=== PATIENT | female | born 1960 | race African-American/Black ===

== ENCOUNTER 2024-02-07 11:05 | Inpatient (IN) | payer OTHER ==
[~2024-02-07] VITALS: Ht 175.3 cm; Wt 60.0 kg
[2024-02-07] MEDS ORDERED: CHOL500043 PO (11:54)
[2024-02-07] MEDS ORDERED: CASP50VI IV (11:54)
[2024-02-07] MEDS ORDERED: NYST15PO4 TP (11:54)
[2024-02-07] MEDS ORDERED: ACID1CAP3 PO (11:54)
[2024-02-07] MEDS ORDERED: CYCL-448 PO (11:54)
[2024-02-07] MEDS ORDERED: FLUC150T61 PO (11:54)
[2024-02-07] MEDS ORDERED: ASCO500 PO (11:54)
[2024-02-07] MEDS ORDERED: METO25 PO (11:54)
[2024-02-07] MEDS ORDERED: MAGN-169 PO (11:54)
[2024-02-07] MEDS ORDERED: BISA-151 PO (11:54)
[2024-02-07] MEDS ORDERED: AMLO2.5T96 PO (11:54)
[2024-02-07] MEDS ORDERED: MULT-664 PO (11:54)
[2024-02-07] MEDS ORDERED: ACET325S20 PO (11:54)
[2024-02-07] MEDS ORDERED: NA P133E4 PR (11:54)
[2024-02-07] MEDS ORDERED: 0.9% SODIUM CHLORIDE 10 ML SYRINGE IVP PRN (12:30)
[2024-02-07 12:40] LABS: ANION GAP 7 mmol/L (8-16); BASOPHILS % (AUTO) 0.8 % (0.0-2.0); CALCIUM, TOTAL 9.1 mg/dL (8.8-10.5); CARBON DIOXIDE 29 mmol/L (22-29); CHLORIDE 104 mmol/L (98-107); CREATININE 0.36 mg/dL (0.60-1.30); EOSINOPHILS % (AUTO) 3.6 % (1.0-6.0); GLOMERULAR FILTR. RATE CALC > 60 mL/min (>60); GLUCOSE,RANDOM 96 mg/dL (70-110); HEMATOCRIT 23.3 % (36-46); HEMOGLOBIN 7.4 g/dL (12.0-16.0); LYMPHOCYTES # (AUTO) 2.7 K/uL (1.0-4.8); LYMPHOCYTES % (AUTO) 17.8 % (22.0-44.0); MEAN CORPUSCULAR HEMOGLOBIN 25.6 pg (26.0-34.0); MEAN CORPUSCULAR HGB CONC 31.8 G/dL (31.0-37.0); MEAN CORPUSCULAR VOLUME 81 fL (80-100); MONOCYTES # (AUTO) 1.2 K/uL (0.1-1.0); NEUTROPHILS # (AUTO) 10.6 K/uL (1.8-7.7); NEUTROPHILS % (AUTO) 69.8 % (40.0-70.0); PLATELET COUNT (AUTO) 450 K/uL (150-450); POTASSIUM 3.1 mmol/L (3.5-5.1); RED CELL DISTRIBUTION WIDTH 19.1 % (11.5-14.5); SODIUM SERUM 140 mmol/L (136-145); UREA NITROGEN, BLOOD 10 mg/dL (7-18); WHITE BLOOD COUNT (AUTO) 15.1 K/uL (4.5-11.0)
[2024-02-07 12:46] LABS: ALANINE AMINOTRANSFERASE 10 U/L (12-78); ALBUMIN 1.5 g/dL (3.4-5.0); ALKALINE PHOSPHATASE 97 U/L (46-116); ASPARTATE AMINOTRANSFERASE 14 U/L (15-37); BILIRUBIN,TOTAL 0.3 mg/dL (0.1-1.0); TOTAL PROTEIN, SERUM 6.7 g/dL (6.4-8.2)
[2024-02-07 12:51] LABS: LACTIC ACID 0.8 mmol/L (0.4-2.0)
[2024-02-07] MEDS: CefTRIAXone 1 GM/DEXTROSE 50 ML IV ONE (12:53)
[2024-02-07] MEDS: SODIUM CHLORIDE 0.9% 1,800 ML IV ONE (12:53)
[2024-02-07 13:20] LABS: LIPASE 145 U/L (16-77)
[2024-02-07 13:25] LABS: INR 1.1 (0.9-1.1); PROTHROMBIN TIME 11.4 SEC (9.4-11.6)
[2024-02-07 13:44] LABS: APPEARANCE,URINE HAZY (CLEAR); BILIRUBIN,URINE NEGATIVE (NEGATIVE); COLOR,URINE YELLOW (YELLOW); GLUCOSE, URINE (UA) NEGATIVE (NEGATIVE); KETONES,URINE NEGATIVE (NEGATIVE); LEUKOCYTE ESTERASE ,URINE LARGE (NEGATIVE); NITRATE,URINE POSITIVE (NEGATIVE); OCCULT BLOOD,URINE MODERATE (NEGATIVE); PROTEIN,URINE 100-200,SEE CONFIRM mg/dL (NEGATIVE); UROBILINOGEN,URINE <=1.0 mg/dL (<=1.0)
[2024-02-07 13:49] LABS: BACTERIA,URINE Many /HPF (None Seen); WBC,URINE 26-50 /HPF (0-5)
[2024-02-07 14:21] LABS: COVID AG,FIA SOURCE NASAL SWAB
[2024-02-07 14:49] LABS: SARS-COV2 (COVID) ANTIGEN,FIA Negative (Negative)
[2024-02-07] MEDS: POTASSIUM CHLORIDE 20 MEQ ER TABLET PO ONE (15:58)
[2024-02-07] MEDS ORDERED: ONDANSETRON HCL 4 MG/2 ML VIAL IVP PRN (21:30)
[2024-02-07] MEDS ORDERED: CeFAZolin 1 GM/DEXTROSE 50 ML IV SCH (21:30)
[2024-02-07] MEDS ORDERED: MAGNESIUM OXIDE 400 MG TABLET PO PRN (22:15)
[2024-02-07] MEDS ORDERED: MAGNESIUM SULFATE 4 GM/WATER 100 ML IV PRN (22:15)
[2024-02-07] MEDS ORDERED: MAGNESIUM SULFATE 2 GM/WATER 50 ML IV PRN (22:15)
[2024-02-07] MEDS: VANCOMYCIN 1.25 GM/WATER(PEG) 250 ML IV ONE (22:29)
[2024-02-08] MEDS ORDERED: IOHEXOL 350 MG/ML 100 ML VIAL ONE (00:44)
[2024-02-08] MEDS ORDERED: SODIUM CHLORIDE 0.9% 100 ML ONE (00:44)
[2024-02-08] MEDS: HEPARIN SODIUM,PORCINE 5,000 UNITS/ML VIAL SQ SCH (00:46)
[2024-02-08 00:55] LABS: RETICULOCYTE % (AUTO) 2.1 % (0.5-2.3)
[2024-02-08 00:58] LABS: % IRON SATURATION 26.9 % (22-44)
[2024-02-08 08:56] VITALS: BP 124/75; PULSE 74; RESP 20; TEMP 98.4; O2SAT 100
[2024-02-08] MEDS: DOCUSATE SODIUM 100 MG CAPSULE PO SCH (09:00)
[2024-02-08] MEDS: VANCOMYCIN 750 MG/WATER(PEG) 150 ML IV SCH (09:18)
[2024-02-08 09:19] LABS: BASOPHILS % (AUTO) 0.4 % (0.0-2.0); EOSINOPHILS % (AUTO) 2.9 % (1.0-6.0); HEMATOCRIT 28.8 % (36-46); HEMOGLOBIN 8.9 g/dL (12.0-16.0); LYMPHOCYTES # (AUTO) 2.4 K/uL (1.0-4.8); LYMPHOCYTES % (AUTO) 11.3 % (22.0-44.0); MEAN CORPUSCULAR HEMOGLOBIN 25.3 pg (26.0-34.0); MEAN CORPUSCULAR VOLUME 82 fL (80-100); MONOCYTES # (AUTO) 1.1 K/uL (0.1-1.0); MONOCYTES % (AUTO) 5.2 % (2.0-9.0); NEUTROPHILS # (AUTO) 17.2 K/uL (1.8-7.7); NEUTROPHILS % (AUTO) 80.2 % (40.0-70.0); PLATELET COUNT (AUTO) 492 K/uL (150-450); RED BLOOD CELL COUNT(AUTO) 3.52 MIL/uL (4.00-5.20); RED CELL DISTRIBUTION WIDTH 18.8 % (11.5-14.5); WHITE BLOOD COUNT (AUTO) 21.5 K/uL (4.5-11.0)
[2024-02-08 09:23] VITALS: BP 124/75; PULSE 74; RESP 20; TEMP 98.4
[2024-02-08 09:30] LABS: ALBUMIN 1.9 g/dL (3.4-5.0); ANION GAP 11 mmol/L (8-16); CALCIUM, TOTAL 10.1 mg/dL (8.8-10.5); CARBON DIOXIDE 24 mmol/L (22-29); CHLORIDE 103 mmol/L (98-107); CREATININE 0.32 mg/dL (0.60-1.30); GLOMERULAR FILTR. RATE CALC > 60 mL/min (>60); GLUCOSE,RANDOM 100 mg/dL (70-110); POTASSIUM 3.8 mmol/L (3.5-5.1); SODIUM SERUM 138 mmol/L (136-145); UREA NITROGEN, BLOOD 5 mg/dL (7-18)
[2024-02-08] MEDS: CASPOFUNGIN ACETATE 50 MG in SODIUM CHLORIDE 0.9% 250 ML IV ONE (11:25)
[2024-02-08] MEDS: METOPROLOL TARTRATE 25 MG TABLET PO SCH (11:29)
[2024-02-08 13:00] VITALS: BP 132/70; PULSE 70; RESP 18; TEMP 97.9
[2024-02-08] MEDS: CEFEPIME HCL 2 GM in DEXTROSE 5%-WATER 50 ML IV SCH (16:02)
[2024-02-08] MEDS: FLUCONAZOLE 200 MG TABLET PO SCH (16:02)
[2024-02-08] MEDS: MetroNIDAZOLE 500 MG TABLET PO SCH (16:09)
[2024-02-08 18:22] VITALS: BP 130/71; PULSE 125; RESP 19; TEMP 98.2
[2024-02-08 20:38] VITALS: BP 121/85; PULSE 138; RESP 20; TEMP 97.5
[2024-02-09] VITALS: BP 100/71; PULSE 125; RESP 19; TEMP 97.8
[2024-02-09 04:00] VITALS: BP 99/64; PULSE 110; RESP 18; TEMP 97.8
[2024-02-09] MEDS: ACETAMINOPHEN 325 MG TABLET PO PRN (05:13)
[2024-02-09] MEDS ORDERED: SODIUM CHLORIDE 0.9% IRRIG BTL 1,000 ML IRRIG ONE (05:27)
[2024-02-09 07:37] LABS: BASOPHILS % (AUTO) 0.3 % (0.0-2.0); EOSINOPHILS % (AUTO) 2.9 % (1.0-6.0); HEMATOCRIT 22.6 % (36-46); HEMOGLOBIN 7.3 g/dL (12.0-16.0); LYMPHOCYTES # (AUTO) 1.5 K/uL (1.0-4.8); LYMPHOCYTES % (AUTO) 9.9 % (22.0-44.0); MEAN CORPUSCULAR HGB CONC 32.3 G/dL (31.0-37.0); MEAN CORPUSCULAR VOLUME 81 fL (80-100); MONOCYTES # (AUTO) 1.1 K/uL (0.1-1.0); MONOCYTES % (AUTO) 7.5 % (2.0-9.0); NEUTROPHILS # (AUTO) 11.9 K/uL (1.8-7.7); NEUTROPHILS % (AUTO) 79.4 % (40.0-70.0); PLATELET COUNT (AUTO) 506 K/uL (150-450); RED CELL DISTRIBUTION WIDTH 19.2 % (11.5-14.5)
[2024-02-09 07:51] LABS: ANION GAP 10 mmol/L (8-16); CALCIUM, TOTAL 9.3 mg/dL (8.8-10.5); CARBON DIOXIDE 24 mmol/L (22-29); CHLORIDE 103 mmol/L (98-107); CREATININE 0.37 mg/dL (0.60-1.30); GLOMERULAR FILTR. RATE CALC > 60 mL/min (>60); GLUCOSE,RANDOM 96 mg/dL (70-110); SODIUM SERUM 137 mmol/L (136-145); UREA NITROGEN, BLOOD 6 mg/dL (7-18); VANCOMYCIN,RANDOM 19.6 mcg/mL (25.0-50.0)
[2024-02-09 07:53] LABS: POTASSIUM 2.8 mmol/L (3.5-5.1)
[2024-02-09 08:00] VITALS: BP 131/55; PULSE 116; RESP 18; TEMP 98
[2024-02-09] MEDS: POTASSIUM CHLORIDE 20 MEQ ER TABLET PO PRN (08:19)
[2024-02-09] MEDS: POTASSIUM CHL 10 MEQ/WATER 50 ML IV PRN (08:20)
[2024-02-09 11:12] VITALS: BP 112/72; PULSE 118; RESP 18; TEMP 97.7
[2024-02-09 16:35] VITALS: BP 96/60; PULSE 124; RESP 20; TEMP 97.8
[2024-02-09 20:00] VITALS: BP 112/51; PULSE 113; RESP 19; TEMP 98.3
[2024-02-09] MEDS: VANCOMYCIN 1.5 GM/WATER(PEG) 300 ML IV ONE (20:12)
[2024-02-10 03:26] VITALS: BP 110/46; PULSE 110; RESP 18; TEMP 100
[2024-02-10 05:10] VITALS: TEMP 98.9
[2024-02-10 07:52] VITALS: BP 109/58; PULSE 115; RESP 17; TEMP 97.4
[2024-02-10 07:56] LABS: BASOPHILS % (AUTO) 0.4 % (0.0-2.0); EOSINOPHILS % (AUTO) 3.4 % (1.0-6.0); HEMATOCRIT 27.1 % (36-46); HEMOGLOBIN 8.6 g/dL (12.0-16.0); LYMPHOCYTES # (AUTO) 2.5 K/uL (1.0-4.8); LYMPHOCYTES % (AUTO) 16.3 % (22.0-44.0); MEAN CORPUSCULAR HEMOGLOBIN 25.8 pg (26.0-34.0); MEAN CORPUSCULAR HGB CONC 31.8 G/dL (31.0-37.0); MEAN CORPUSCULAR VOLUME 81 fL (80-100); MONOCYTES # (AUTO) 1.4 K/uL (0.1-1.0); MONOCYTES % (AUTO) 9.1 % (2.0-9.0); NEUTROPHILS % (AUTO) 70.8 % (40.0-70.0); PLATELET COUNT (AUTO) 514 K/uL (150-450); RED BLOOD CELL COUNT(AUTO) 3.34 MIL/uL (4.00-5.20); WHITE BLOOD COUNT (AUTO) 15.6 K/uL (4.5-11.0)
[2024-02-10 08:02] LABS: ANION GAP 9 mmol/L (8-16); CARBON DIOXIDE 23 mmol/L (22-29); CHLORIDE 106 mmol/L (98-107); CREATININE 0.49 mg/dL (0.60-1.30); GLOMERULAR FILTR. RATE CALC > 60 mL/min (>60); GLUCOSE,RANDOM 83 mg/dL (70-110); POTASSIUM 3.9 mmol/L (3.5-5.1); SODIUM SERUM 138 mmol/L (136-145); UREA NITROGEN, BLOOD 7 mg/dL (7-18)
[2024-02-10 08:06] LABS: CALCIUM, TOTAL 9.8 mg/dL (8.8-10.5)
[2024-02-10] MEDS: VANCOMYCIN 750 MG/WATER(PEG) 150 ML IV SCH (08:29)
[2024-02-10 11:37] VITALS: BP 114/77; PULSE 97; RESP 16; TEMP 97.8
[2024-02-10 17:23] VITALS: BP 116/70; PULSE 96; RESP 19; TEMP 97.2
[2024-02-10] MEDS ORDERED: CALC-26 PO (18:39)
[2024-02-10] MEDS ORDERED: OXYB5TAB20 PO (18:39)
[2024-02-10] MEDS ORDERED: SERT-438 PO (18:39)
[2024-02-10] MEDS ORDERED: ACET-2247 PO (18:52)
[2024-02-10 20:30] VITALS: BP 112/68; PULSE 95; RESP 18; TEMP 98.5
[2024-02-11] VITALS (10 sets, daily range): BP systolic 88–143; BP diastolic 51–116; PULSE 72–115; RESP 18–20; TEMP 97.5–98.2
[2024-02-11 11:44] LABS: ANION GAP 9 mmol/L (8-16); CALCIUM, TOTAL 10.2 mg/dL (8.8-10.5); CARBON DIOXIDE 23 mmol/L (22-29); CHLORIDE 105 mmol/L (98-107); CREATININE 0.42 mg/dL (0.60-1.30); GLOMERULAR FILTR. RATE CALC > 60 mL/min (>60); GLUCOSE,RANDOM 83 mg/dL (70-110); SODIUM SERUM 137 mmol/L (136-145); UREA NITROGEN, BLOOD 6 mg/dL (7-18)
[2024-02-11] MEDS: *CLINICAL-RX DOSING [ENTER DRUG IN COMMENTS] CLINICAL ONE (15:56)
[2024-02-11] MEDS: IMIPENEM/CILASTATIN SODIUM 500 MG in SODIUM CHLORIDE 0.9% 100 ML IV SCH (16:56)
[2024-02-12 03:34] VITALS: BP 105/59; PULSE 73; RESP 19; TEMP 97.5
[2024-02-12 07:17] LABS: ANION GAP 11 mmol/L (8-16); CALCIUM, TOTAL 9.7 mg/dL (8.8-10.5); CARBON DIOXIDE 22 mmol/L (22-29); CHLORIDE 105 mmol/L (98-107); CREATININE 0.39 mg/dL (0.60-1.30); GLOMERULAR FILTR. RATE CALC > 60 mL/min (>60); GLUCOSE,RANDOM 95 mg/dL (70-110); POTASSIUM 3.2 mmol/L (3.5-5.1); SODIUM SERUM 138 mmol/L (136-145); UREA NITROGEN, BLOOD 7 mg/dL (7-18); VANCOMYCIN,RANDOM 27.9 mcg/mL (25.0-50.0)
[2024-02-12 08:24] VITALS: BP 127/55; PULSE 101; RESP 18; TEMP 97.6
[2024-02-12 11:37] VITALS: BP 121/58; PULSE 92; RESP 19; TEMP 98
[2024-02-12 14:36] LABS: EOSINOPHILS % (AUTO) 1.5 % (1.0-6.0); HEMATOCRIT 24.5 % (36-46); HEMOGLOBIN 7.8 g/dL (12.0-16.0); LYMPHOCYTES # (AUTO) 2.1 K/uL (1.0-4.8); LYMPHOCYTES % (AUTO) 13.7 % (22.0-44.0); MEAN CORPUSCULAR HEMOGLOBIN 25.6 pg (26.0-34.0); MEAN CORPUSCULAR HGB CONC 31.7 G/dL (31.0-37.0); MEAN CORPUSCULAR VOLUME 81 fL (80-100); MONOCYTES # (AUTO) 0.7 K/uL (0.1-1.0); MONOCYTES % (AUTO) 4.8 % (2.0-9.0); NEUTROPHILS # (AUTO) 12.3 K/uL (1.8-7.7); PLATELET COUNT (AUTO) 525 K/uL (150-450); RED BLOOD CELL COUNT(AUTO) 3.04 MIL/uL (4.00-5.20); RED CELL DISTRIBUTION WIDTH 19.4 % (11.5-14.5); WHITE BLOOD COUNT (AUTO) 15.5 K/uL (4.5-11.0)
[2024-02-12] MEDS: SODIUM CHLORIDE 0.9% 1,000 ML IV ONE (15:08)
[2024-02-12 16:22] VITALS: BP 125/62; PULSE 86; RESP 18; TEMP 97.9
[2024-02-12] MEDS: AMPICILLIN SODIUM/SULBACTAM NA 3 GM in SODIUM CHLORIDE 0.9% 100 ML IV SCH (17:17)
[2024-02-12] MEDS: SODIUM CHLORIDE 0.9% IV ONE (17:24)
[2024-02-12] MEDS: TIGECYCLINE IV ONE (17:24)
[2024-02-12] MEDS: MEROPENEM 2 GM in SODIUM CHLORIDE 0.9% 100 ML IV SCH (18:31)
[2024-02-12] MEDS ORDERED: VANCOMYCIN 500 MG/WATER(PEG) 100 ML IV SCH (20:00)
[2024-02-12 20:36] VITALS: BP 137/72; PULSE 86; RESP 20; TEMP 98
[2024-02-13] VITALS (21 sets, daily range): BP systolic 92–160; BP diastolic 55–106; PULSE 89–110; RESP 12–20; TEMP 97.5–98.3
[2024-02-13] MEDS ORDERED: SODIUM CHLORIDE 0.9% 500 ML IV ONE (00:15)
[2024-02-13] MEDS: TIGECYCLINE IV SCH (04:00)
[2024-02-13] MEDS: SODIUM CHLORIDE 0.9% IV SCH (04:00)
[2024-02-13] MEDS ORDERED: METHYLENE BLUE 1% 10 ML VIAL IVP ONE (06:22)
[2024-02-13] MEDS ORDERED: SODIUM CL IRRIG SOLN BAG 3,000 ML IRRIG ONE (06:22)
[2024-02-13 06:30] LABS: BASOPHILS % (AUTO) 0.6 % (0.0-2.0); EOSINOPHILS % (AUTO) 1.1 % (1.0-6.0); HEMATOCRIT 37.9 % (36-46); LYMPHOCYTES # (AUTO) 3.1 K/uL (1.0-4.8); LYMPHOCYTES % (AUTO) 16.8 % (22.0-44.0); MEAN CORPUSCULAR HEMOGLOBIN 26.9 pg (26.0-34.0); MEAN CORPUSCULAR HGB CONC 31.7 G/dL (31.0-37.0); MEAN CORPUSCULAR VOLUME 85 fL (80-100); MONOCYTES # (AUTO) 1.7 K/uL (0.1-1.0); MONOCYTES % (AUTO) 9.1 % (2.0-9.0); NEUTROPHILS # (AUTO) 13.4 K/uL (1.8-7.7); NEUTROPHILS % (AUTO) 72.4 % (40.0-70.0); PLATELET COUNT (AUTO) 490 K/uL (150-450); RED BLOOD CELL COUNT(AUTO) 4.46 MIL/uL (4.00-5.20); RED CELL DISTRIBUTION WIDTH 18.9 % (11.5-14.5); WHITE BLOOD COUNT (AUTO) 18.4 K/uL (4.5-11.0)
[2024-02-13] MEDS ORDERED: BUPIVACAINE LIPOSOME/PF 1.3%-13.3MG/ML SUSP 20 ML VIAL INJ ONE (06:30)
[2024-02-13 06:34] LABS: ALANINE AMINOTRANSFERASE 13 U/L (12-78); ALBUMIN 1.8 g/dL (3.4-5.0); ALKALINE PHOSPHATASE 127 U/L (46-116); ANION GAP 11 mmol/L (8-16); ASPARTATE AMINOTRANSFERASE 32 U/L (15-37); BILIRUBIN,TOTAL 0.9 mg/dL (0.1-1.0); CALCIUM, TOTAL 10.2 mg/dL (8.8-10.5); CARBON DIOXIDE 23 mmol/L (22-29); CHLORIDE 107 mmol/L (98-107); CREATININE 0.45 mg/dL (0.60-1.30); GLOMERULAR FILTR. RATE CALC > 60 mL/min (>60); GLUCOSE,RANDOM 89 mg/dL (70-110); POTASSIUM 4.1 mmol/L (3.5-5.1); SODIUM SERUM 141 mmol/L (136-145); TOTAL PROTEIN, SERUM 7.6 g/dL (6.4-8.2); UREA NITROGEN, BLOOD 9 mg/dL (7-18)
[2024-02-13] MEDS: RINGERS SOLUTION,LACTATED 1,000 ML IV ONE (06:45)
[2024-02-13] MEDS: ETHYL ALCOHOL 62% ANTISEPTIC NASAL SANITIZER 0.6 ML AMPUL NASAL ONE (07:12)
[2024-02-13] MEDS: VANCOMYCIN HCL 1 GM VIAL ONE (08:00)
[2024-02-13] MEDS ORDERED: VANCOMYCIN HCL 1 GM VIAL ONE (08:05)
[2024-02-13] MEDS ORDERED: HYDROmorphone HCL 2 MG/ML SYRINGE IVP PRN (08:30)
[2024-02-13] MEDS ORDERED: FentaNYL CITRATE PF 100 MCG/2 ML VIAL IVP PRN (08:30)
[2024-02-13] MEDS ORDERED: SODIUM CHLORIDE 0.9% 250 ML IV ONE (10:30)
[2024-02-13] MEDS ORDERED: PROPOFOL 1% 20 ML VIAL IVP ONE (16:31)
[2024-02-13] MEDS ORDERED: 0.9% SODIUM CHLORIDE 10 ML VIAL IRRIG ONE (16:31)
[2024-02-13] MEDS ORDERED: LIDOCAINE/PF 2% 5 ML SYRINGE IVP ONE (16:31)
[2024-02-13] MEDS ORDERED: SUGAMMADEX SODIUM 200 MG/2 ML VIAL IVP ONE (16:31)
[2024-02-13] MEDS ORDERED: ROCURONIUM BROMIDE 10 MG/ML 5 ML VIAL IV ONE (16:31)
[2024-02-13] MEDS ORDERED: ONDANSETRON HCL 4 MG/2 ML VIAL IVP ONE (16:31)
[2024-02-13] MEDS ORDERED: PHENYLEPHRINE HCL 10 MG/ML VIAL IVP ONE (16:31)
[2024-02-13] MEDS ORDERED: DEXAMETHASONE SOD PHOS 4 MG/ML VIAL IVP ONE (16:31)
[2024-02-13] MEDS: OXYGEN THERAPY IH SCH (20:00)
[2024-02-14] VITALS (7 sets, daily range): BP systolic 117–145; BP diastolic 47–103; PULSE 86–118; RESP 17–20; TEMP 97.2–98
[2024-02-14 07:31] LABS: ALBUMIN 1.5 g/dL (3.4-5.0); ANION GAP 9 mmol/L (8-16); CALCIUM, TOTAL 9.3 mg/dL (8.8-10.5); CARBON DIOXIDE 25 mmol/L (22-29); CHLORIDE 111 mmol/L (98-107); GLOMERULAR FILTR. RATE CALC > 60 mL/min (>60); GLUCOSE,RANDOM 209 mg/dL (70-110); SODIUM SERUM 144 mmol/L (136-145); UREA NITROGEN, BLOOD 14 mg/dL (7-18)
[2024-02-14 07:40] LABS: POTASSIUM 2.9 mmol/L (3.5-5.1)
[2024-02-14] MEDS: POTASSIUM CHL 10 MEQ/WATER 50 ML IV PRN (08:18)
[2024-02-14] MEDS ORDERED: ONDANSETRON HCL 4 MG/2 ML VIAL IVP PRN (17:15)
[2024-02-14] MEDS: ONDANSETRON HCL 4 MG/2 ML VIAL IVP PRN (17:22)
[2024-02-14 23:56] LABS: GLUCOMETER DEV NAME(LOC) 5N.1D; GLUCOSE,POINT OF CARE 183 MG/DL (70-110)
[2024-02-15 04:56] VITALS: BP 110/68; PULSE 105; RESP 18; TEMP 98.6
[2024-02-15 09:23] VITALS: BP 135/93; PULSE 124; RESP 20
[2024-02-15 11:36] VITALS: BP 146/84; PULSE 123; RESP 18; TEMP 97.9
[2024-02-15 15:47] VITALS: BP 124/100; PULSE 125; RESP 20; TEMP 97.6
[2024-02-15 20:13] VITALS: BP 155/102; PULSE 123; RESP 20; TEMP 97.6
[2024-02-15] MEDS: DOXYCYCLINE HYCLATE 100 MG in DEXTROSE 5%-WATER 100 ML IV SCH (22:15)
[2024-02-16] VITALS (7 sets, daily range): BP systolic 136–161; BP diastolic 49–85; PULSE 68–118; RESP 18–20; TEMP 97.5–97.9
[2024-02-16 00:45] LABS: BASOPHILS % (AUTO) 0.2 % (0.0-2.0); EOSINOPHILS % (AUTO) 0 % (1.0-6.0); HEMATOCRIT 49.1 % (36-46); LYMPHOCYTES # (AUTO) 1.9 K/uL (1.0-4.8); LYMPHOCYTES % (AUTO) 4.5 % (22.0-44.0); MEAN CORPUSCULAR HEMOGLOBIN 27.3 pg (26.0-34.0); MEAN CORPUSCULAR HGB CONC 32.6 G/dL (31.0-37.0); MEAN CORPUSCULAR VOLUME 84 fL (80-100); MONOCYTES # (AUTO) 1.7 K/uL (0.1-1.0); NEUTROPHILS # (AUTO) 38.1 K/uL (1.8-7.7); PLATELET COUNT (AUTO) 210 K/uL (150-450); RED BLOOD CELL COUNT(AUTO) 5.87 MIL/uL (4.00-5.20); RED CELL DISTRIBUTION WIDTH 18.9 % (11.5-14.5)
[2024-02-16 00:46] LABS: NEUTROPHILS % (AUTO) 91.3 % (40.0-70.0)
[2024-02-16 00:47] LABS: WHITE BLOOD COUNT (AUTO) 41.7 K/uL (4.5-11.0)
[2024-02-16 10:20] LABS: BASOPHILS % (AUTO) 0.3 % (0.0-2.0); EOSINOPHILS % (AUTO) 0 % (1.0-6.0); HEMATOCRIT 44.9 % (36-46); HEMOGLOBIN 14.4 g/dL (12.0-16.0); LYMPHOCYTES # (AUTO) 1.8 K/uL (1.0-4.8); LYMPHOCYTES % (AUTO) 4.3 % (22.0-44.0); MEAN CORPUSCULAR VOLUME 85 fL (80-100); NEUTROPHILS # (AUTO) 36.9 K/uL (1.8-7.7); PLATELET COUNT (AUTO) 207 K/uL (150-450); RED BLOOD CELL COUNT(AUTO) 5.31 MIL/uL (4.00-5.20)
[2024-02-16 10:34] LABS: ALANINE AMINOTRANSFERASE 15 U/L (12-78); ALBUMIN 1.4 g/dL (3.4-5.0); ALKALINE PHOSPHATASE 154 U/L (46-116); ANION GAP 10 mmol/L (8-16); ASPARTATE AMINOTRANSFERASE 28 U/L (15-37); BILIRUBIN,TOTAL 0.8 mg/dL (0.1-1.0); C-REACTIVE PROTEIN QUANT 24.82 mg/dL (0.00-0.30); CALCIUM, TOTAL 9.8 mg/dL (8.8-10.5); CARBON DIOXIDE 26 mmol/L (22-29); CHLORIDE 111 mmol/L (98-107); CREATININE 0.68 mg/dL (0.60-1.30); GLOMERULAR FILTR. RATE CALC > 60 mL/min (>60); GLUCOSE,RANDOM 171 mg/dL (70-110); POTASSIUM 3.2 mmol/L (3.5-5.1); SODIUM SERUM 147 mmol/L (136-145); TOTAL PROTEIN, SERUM 6.1 g/dL (6.4-8.2); UREA NITROGEN, BLOOD 21 mg/dL (7-18)
[2024-02-16 10:49] LABS: NEUTROPHILS % (AUTO) 90.4 % (40.0-70.0); WHITE BLOOD COUNT (AUTO) 40.9 K/uL (4.5-11.0)
[2024-02-16] MEDS ORDERED: IOHEXOL 350 MG/ML 100 ML VIAL ONE (10:58)
[2024-02-16] MEDS ORDERED: SODIUM CHLORIDE 0.9% 100 ML ONE (10:58)
[2024-02-17] VITALS (7 sets, daily range): BP systolic 67–151; BP diastolic 30–105; PULSE 96–126; RESP 18–19; TEMP 97.5–98.3
[2024-02-17] MEDS: POTASSIUM CHLORIDE 20 MEQ ER TABLET PO PRN (01:03)
[2024-02-17] MEDS ORDERED: SODIUM CHLORIDE 0.9% 500 ML IV ONE (01:20)
[2024-02-17 01:46] LABS: GLUCOMETER DEV NAME(LOC) 5S.2D; GLUCOSE,POINT OF CARE 125 MG/DL (70-110)
[2024-02-17 08:03] LABS: BASOPHILS % (AUTO) 0.2 % (0.0-2.0); EOSINOPHILS % (AUTO) 0.1 % (1.0-6.0); HEMATOCRIT 40.2 % (36-46); HEMOGLOBIN 13.1 g/dL (12.0-16.0); LYMPHOCYTES # (AUTO) 1.6 K/uL (1.0-4.8); LYMPHOCYTES % (AUTO) 5.1 % (22.0-44.0); MEAN CORPUSCULAR HEMOGLOBIN 27.5 pg (26.0-34.0); MEAN CORPUSCULAR HGB CONC 32.7 G/dL (31.0-37.0); MEAN CORPUSCULAR VOLUME 84 fL (80-100); MONOCYTES # (AUTO) 1.4 K/uL (0.1-1.0); MONOCYTES % (AUTO) 4.4 % (2.0-9.0); NEUTROPHILS # (AUTO) 28.6 K/uL (1.8-7.7); PLATELET COUNT (AUTO) 162 K/uL (150-450); RED BLOOD CELL COUNT(AUTO) 4.78 MIL/uL (4.00-5.20); RED CELL DISTRIBUTION WIDTH 19.3 % (11.5-14.5)
[2024-02-17 08:15] LABS: ALANINE AMINOTRANSFERASE 14 U/L (12-78); ALBUMIN 1.3 g/dL (3.4-5.0); ALKALINE PHOSPHATASE 152 U/L (46-116); ANION GAP 8 mmol/L (8-16); ASPARTATE AMINOTRANSFERASE 29 U/L (15-37); BILIRUBIN,TOTAL 0.8 mg/dL (0.1-1.0); CALCIUM, TOTAL 9.4 mg/dL (8.8-10.5); CARBON DIOXIDE 27 mmol/L (22-29); CHLORIDE 112 mmol/L (98-107); CREATININE 0.49 mg/dL (0.60-1.30); GLOMERULAR FILTR. RATE CALC > 60 mL/min (>60); GLUCOSE,RANDOM 163 mg/dL (70-110); POTASSIUM 3.4 mmol/L (3.5-5.1); SODIUM SERUM 147 mmol/L (136-145); TOTAL PROTEIN, SERUM 5.8 g/dL (6.4-8.2); UREA NITROGEN, BLOOD 12 mg/dL (7-18)
[2024-02-17 08:40] LABS: NEUTROPHILS % (AUTO) 90.2 % (40.0-70.0); WHITE BLOOD COUNT (AUTO) 31.7 K/uL (4.5-11.0)
[2024-02-18] MEDS ORDERED: MIDAZOLAM HCL 2 MG/2 ML VIAL IVP ONE (03:51)
[2024-02-18 04:59] VITALS: BP 136/79; PULSE 109; RESP 19; TEMP 97.7
[2024-02-18 06:47] LABS: BASOPHILS % (AUTO) 0.2 % (0.0-2.0); EOSINOPHILS % (AUTO) 0 % (1.0-6.0); HEMOGLOBIN 12.1 g/dL (12.0-16.0); LYMPHOCYTES % (AUTO) 7.7 % (22.0-44.0); MEAN CORPUSCULAR HEMOGLOBIN 27.2 pg (26.0-34.0); MEAN CORPUSCULAR HGB CONC 32.7 G/dL (31.0-37.0); MEAN CORPUSCULAR VOLUME 83 fL (80-100); MONOCYTES # (AUTO) 1.7 K/uL (0.1-1.0); MONOCYTES % (AUTO) 6.7 % (2.0-9.0); NEUTROPHILS # (AUTO) 22.2 K/uL (1.8-7.7); PLATELET COUNT (AUTO) 150 K/uL (150-450); RED BLOOD CELL COUNT(AUTO) 4.45 MIL/uL (4.00-5.20); RED CELL DISTRIBUTION WIDTH 19.4 % (11.5-14.5); WHITE BLOOD COUNT (AUTO) 26.1 K/uL (4.5-11.0)
[2024-02-18 06:57] LABS: NEUTROPHILS % (AUTO) 85.4 % (40.0-70.0)
[2024-02-18 07:04] LABS: ALANINE AMINOTRANSFERASE 9 U/L (12-78); ALBUMIN 1.3 g/dL (3.4-5.0); ALKALINE PHOSPHATASE 145 U/L (46-116); ANION GAP 5 mmol/L (8-16); ASPARTATE AMINOTRANSFERASE 26 U/L (15-37); BILIRUBIN,TOTAL 0.9 mg/dL (0.1-1.0); CALCIUM, TOTAL 8.9 mg/dL (8.8-10.5); CARBON DIOXIDE 31 mmol/L (22-29); CHLORIDE 112 mmol/L (98-107); CREATININE 0.42 mg/dL (0.60-1.30); GLOMERULAR FILTR. RATE CALC > 60 mL/min (>60); GLUCOSE,RANDOM 141 mg/dL (70-110); SODIUM SERUM 148 mmol/L (136-145); TOTAL PROTEIN, SERUM 5.7 g/dL (6.4-8.2); UREA NITROGEN, BLOOD 6 mg/dL (7-18)
[2024-02-18] MEDS ORDERED: SODIUM CHLORIDE 0.9% 250 ML IV ONE ×2 (12:13→23:05)
[2024-02-18 12:39] VITALS: BP 154/79; PULSE 128; RESP 19; TEMP 97.7
[2024-02-18 16:11] VITALS: BP 135/77; PULSE 143; RESP 19; TEMP 98.1
[2024-02-18 19:45] VITALS: BP 140/79; PULSE 106; RESP 19; TEMP 98
[2024-02-19] VITALS (7 sets, daily range): BP systolic 101–155; BP diastolic 60–97; PULSE 84–116; RESP 16–18; TEMP 97.1–98.3
[2024-02-19 07:12] LABS: BASOPHILS % (AUTO) 0.1 % (0.0-2.0); EOSINOPHILS % (AUTO) 0.3 % (1.0-6.0); HEMATOCRIT 37.6 % (36-46); LYMPHOCYTES # (AUTO) 2.8 K/uL (1.0-4.8); LYMPHOCYTES % (AUTO) 12.6 % (22.0-44.0); MEAN CORPUSCULAR HEMOGLOBIN 26.7 pg (26.0-34.0); MEAN CORPUSCULAR HGB CONC 32.1 G/dL (31.0-37.0); MEAN CORPUSCULAR VOLUME 83 fL (80-100); MONOCYTES # (AUTO) 1.6 K/uL (0.1-1.0); MONOCYTES % (AUTO) 7.4 % (2.0-9.0); NEUTROPHILS # (AUTO) 17.8 K/uL (1.8-7.7); NEUTROPHILS % (AUTO) 79.6 % (40.0-70.0); PLATELET COUNT (AUTO) 135 K/uL (150-450); RED BLOOD CELL COUNT(AUTO) 4.51 MIL/uL (4.00-5.20); RED CELL DISTRIBUTION WIDTH 19.6 % (11.5-14.5); WHITE BLOOD COUNT (AUTO) 22.3 K/uL (4.5-11.0)
[2024-02-19] MEDS: HYDROCODONE/ACETAMINOPHEN 5-325 MG TABLET PO PRN (08:20)
[2024-02-19] MEDS: MORPHINE SULFATE 4 MG/ML SYRINGE IVP PRN (10:41)
[2024-02-19] MEDS ORDERED: IOHEXOL 350 MG/ML 100 ML VIAL ONE (11:51)
[2024-02-19] MEDS ORDERED: SODIUM CHLORIDE 0.9% 100 ML ONE (11:51)
[2024-02-20] MEDS ORDERED: MORPHINE SULFATE 2 MG/ML SYRINGE IVP PRN (02:30)
[2024-02-20 04:25] VITALS: BP 148/90; PULSE 91; RESP 18; TEMP 97.9
[2024-02-20 07:43] VITALS: BP 108/77; PULSE 102; RESP 18; TEMP 97.5
[2024-02-20 12:00] VITALS: BP 110/76; PULSE 99; RESP 19; TEMP 97.8
[2024-02-20] MEDS: MORPHINE SULFATE 2 MG/ML SYRINGE IVP PRN (15:20)
[2024-02-20 16:00] VITALS: BP 112/76; PULSE 98; RESP 18; TEMP 98
[2024-02-20 19:51] VITALS: BP 126/57; PULSE 107; RESP 18; TEMP 97.6
[2024-02-21 00:13] VITALS: BP 121/55; PULSE 111; RESP 18; TEMP 98
[2024-02-21 05:35] VITALS: BP 139/72; PULSE 102; RESP 16; TEMP 97.5
[2024-02-21 07:10] LABS: BASOPHILS % (AUTO) 0.4 % (0.0-2.0); EOSINOPHILS % (AUTO) 2.8 % (1.0-6.0); HEMATOCRIT 35.3 % (36-46); HEMOGLOBIN 11.6 g/dL (12.0-16.0); LYMPHOCYTES # (AUTO) 2.7 K/uL (1.0-4.8); LYMPHOCYTES % (AUTO) 17.8 % (22.0-44.0); MEAN CORPUSCULAR HEMOGLOBIN 27.1 pg (26.0-34.0); MEAN CORPUSCULAR HGB CONC 32.9 G/dL (31.0-37.0); MEAN CORPUSCULAR VOLUME 83 fL (80-100); MONOCYTES # (AUTO) 1.1 K/uL (0.1-1.0); MONOCYTES % (AUTO) 7.3 % (2.0-9.0); NEUTROPHILS # (AUTO) 10.8 K/uL (1.8-7.7); NEUTROPHILS % (AUTO) 71.7 % (40.0-70.0); PLATELET COUNT (AUTO) 164 K/uL (150-450); RED BLOOD CELL COUNT(AUTO) 4.28 MIL/uL (4.00-5.20); RED CELL DISTRIBUTION WIDTH 19.5 % (11.5-14.5)
[2024-02-21 07:20] LABS: ALANINE AMINOTRANSFERASE 9 U/L (12-78); ALBUMIN 1.3 g/dL (3.4-5.0); ALKALINE PHOSPHATASE 121 U/L (46-116); ANION GAP 8 mmol/L (8-16); ASPARTATE AMINOTRANSFERASE 23 U/L (15-37); BILIRUBIN,TOTAL 0.6 mg/dL (0.1-1.0); C-REACTIVE PROTEIN QUANT 9.48 mg/dL (0.00-0.30); CARBON DIOXIDE 29 mmol/L (22-29); CHLORIDE 103 mmol/L (98-107); CREATININE 0.38 mg/dL (0.60-1.30); GLOMERULAR FILTR. RATE CALC > 60 mL/min (>60); GLUCOSE,RANDOM 116 mg/dL (70-110); LIPASE 43 U/L (16-77); SODIUM SERUM 140 mmol/L (136-145); TOTAL PROTEIN, SERUM 5.8 g/dL (6.4-8.2); UREA NITROGEN, BLOOD 5 mg/dL (7-18)
[2024-02-21 07:28] LABS: POTASSIUM 2.9 mmol/L (3.5-5.1)
[2024-02-21] MEDS ORDERED: SODIUM CHLORIDE 0.9% 250 ML IV ONE (07:31)
[2024-02-21 07:50] VITALS: BP 146/67; PULSE 96; RESP 18; TEMP 97.5
[2024-02-21 12:20] VITALS: BP 142/58; PULSE 96; RESP 19; TEMP 97.7
[2024-02-21 15:58] VITALS: BP 139/69; PULSE 99; RESP 19; TEMP 98
[2024-02-21 20:53] VITALS: BP 135/69; PULSE 114; RESP 20; TEMP 99
[2024-02-22] VITALS (8 sets, daily range): BP systolic 107–154; BP diastolic 39–93; PULSE 85–110; RESP 18–20; TEMP 97.6–98.9
[2024-02-22] MEDS ORDERED: SODIUM CHLORIDE 0.9% 250 ML IV ONE (10:32)
[2024-02-23 05:47] VITALS: BP 103/68; PULSE 99; RESP 20; TEMP 98.3
[2024-02-23 06:05] LABS: BASOPHILS % (AUTO) 0.4 % (0.0-2.0); EOSINOPHILS % (AUTO) 5.5 % (1.0-6.0); HEMATOCRIT 34.7 % (36-46); HEMOGLOBIN 11.4 g/dL (12.0-16.0); LYMPHOCYTES # (AUTO) 2.7 K/uL (1.0-4.8); LYMPHOCYTES % (AUTO) 18.9 % (22.0-44.0); MEAN CORPUSCULAR HEMOGLOBIN 27.2 pg (26.0-34.0); MEAN CORPUSCULAR HGB CONC 32.8 G/dL (31.0-37.0); MEAN CORPUSCULAR VOLUME 83 fL (80-100); MONOCYTES # (AUTO) 1.2 K/uL (0.1-1.0); MONOCYTES % (AUTO) 8.4 % (2.0-9.0); NEUTROPHILS # (AUTO) 9.4 K/uL (1.8-7.7); NEUTROPHILS % (AUTO) 66.8 % (40.0-70.0); PLATELET COUNT (AUTO) 216 K/uL (150-450); RED BLOOD CELL COUNT(AUTO) 4.18 MIL/uL (4.00-5.20); RED CELL DISTRIBUTION WIDTH 19.4 % (11.5-14.5)
[2024-02-23 06:24] LABS: ALANINE AMINOTRANSFERASE 12 U/L (12-78); ALBUMIN 1.3 g/dL (3.4-5.0); ALKALINE PHOSPHATASE 127 U/L (46-116); ANION GAP 5 mmol/L (8-16); ASPARTATE AMINOTRANSFERASE 27 U/L (15-37); BILIRUBIN,TOTAL 0.5 mg/dL (0.1-1.0); CALCIUM, TOTAL 9.6 mg/dL (8.8-10.5); CARBON DIOXIDE 28 mmol/L (22-29); CHLORIDE 105 mmol/L (98-107); CREATININE 0.49 mg/dL (0.60-1.30); GLOMERULAR FILTR. RATE CALC > 60 mL/min (>60); GLUCOSE,RANDOM 138 mg/dL (70-110); POTASSIUM 3.7 mmol/L (3.5-5.1); SODIUM SERUM 138 mmol/L (136-145); UREA NITROGEN, BLOOD 9 mg/dL (7-18)
[2024-02-23] MEDS: COLLAGENASE 250 UNITS/GM 30 GM OINTMENT TP SCH (08:21)
[2024-02-23 08:29] VITALS: BP 137/75; PULSE 98; RESP 18; TEMP 97.6
[2024-02-23 11:41] VITALS: BP 135/95; PULSE 96; RESP 18; TEMP 98.5
[2024-02-23 16:06] VITALS: BP 129/69; PULSE 101; RESP 16; TEMP 98.2
[2024-02-23 20:56] VITALS: BP 136/82; PULSE 80; RESP 18; TEMP 98
[2024-02-24 00:29] VITALS: BP 102/58; PULSE 88; RESP 16; TEMP 98
[2024-02-24 04:30] VITALS: BP 122/62; PULSE 84; RESP 18; TEMP 97.7
[2024-02-24 07:58] VITALS: BP 126/63; PULSE 92; RESP 18; TEMP 97.5
[2024-02-24 11:47] VITALS: BP 132/71; PULSE 86; RESP 18; TEMP 98.6
[2024-02-24 15:52] VITALS: BP 130/70; PULSE 96; RESP 18; TEMP 98
[2024-02-24 20:15] VITALS: BP 133/71; PULSE 98; RESP 18; TEMP 98.2
[2024-02-25 00:20] VITALS: BP 103/53; PULSE 92; RESP 18; TEMP 97.9
[2024-02-25 04:00] VITALS: BP 107/56; PULSE 86; RESP 18; TEMP 97.7
[2024-02-25 08:27] VITALS: BP 123/51; PULSE 107; RESP 18; TEMP 98.3
[2024-02-25] MEDS ORDERED: COLLAGENASE 250 UNITS/GM 30 GM OINTMENT TP SCH (09:00)
[2024-02-25 11:02] LABS: BASOPHILS % (AUTO) 0.6 % (0.0-2.0); EOSINOPHILS % (AUTO) 5.9 % (1.0-6.0); HEMATOCRIT 33.6 % (36-46); HEMOGLOBIN 10.9 g/dL (12.0-16.0); LYMPHOCYTES # (AUTO) 2.1 K/uL (1.0-4.8); LYMPHOCYTES % (AUTO) 14.7 % (22.0-44.0); MEAN CORPUSCULAR HEMOGLOBIN 27.2 pg (26.0-34.0); MEAN CORPUSCULAR HGB CONC 32.4 G/dL (31.0-37.0); MEAN CORPUSCULAR VOLUME 84 fL (80-100); MONOCYTES # (AUTO) 1.1 K/uL (0.1-1.0); MONOCYTES % (AUTO) 7.8 % (2.0-9.0); NEUTROPHILS # (AUTO) 10.1 K/uL (1.8-7.7); PLATELET COUNT (AUTO) 293 K/uL (150-450); RED BLOOD CELL COUNT(AUTO) 4.01 MIL/uL (4.00-5.20); RED CELL DISTRIBUTION WIDTH 19.5 % (11.5-14.5); WHITE BLOOD COUNT (AUTO) 14.3 K/uL (4.5-11.0)
[2024-02-25 11:09] LABS: ALANINE AMINOTRANSFERASE 19 U/L (12-78); ALBUMIN 1.3 g/dL (3.4-5.0); ALKALINE PHOSPHATASE 145 U/L (46-116); ANION GAP 7 mmol/L (8-16); ASPARTATE AMINOTRANSFERASE 32 U/L (15-37); BILIRUBIN,TOTAL 0.3 mg/dL (0.1-1.0); C-REACTIVE PROTEIN QUANT 8.85 mg/dL (0.00-0.30); CALCIUM, TOTAL 9.2 mg/dL (8.8-10.5); CARBON DIOXIDE 29 mmol/L (22-29); CHLORIDE 104 mmol/L (98-107); CREATININE 0.51 mg/dL (0.60-1.30); GLOMERULAR FILTR. RATE CALC > 60 mL/min (>60); GLUCOSE,RANDOM 197 mg/dL (70-110); POTASSIUM 3.3 mmol/L (3.5-5.1); SODIUM SERUM 140 mmol/L (136-145); TOTAL PROTEIN, SERUM 5.9 g/dL (6.4-8.2); UREA NITROGEN, BLOOD 6 mg/dL (7-18)
[2024-02-25 13:14] VITALS: BP 117/77; PULSE 109; RESP 18; TEMP 97.4
[2024-02-25 15:30] VITALS: BP 98/64; PULSE 95; RESP 18; TEMP 97.7
[2024-02-25] MEDS: *CLINICAL-RX DOSING [ENTER DRUG IN COMMENTS] CLINICAL ONE (15:31)
[2024-02-25] MEDS: CEFIDEROCOL SULFATE TOSYLATE IV SCH (17:17)
[2024-02-25] MEDS: SODIUM CHLORIDE 0.9% IV SCH (17:17)
[2024-02-25 20:00] VITALS: BP 140/68; PULSE 96; RESP 18; TEMP 98.4
[2024-02-25] MEDS ORDERED: SODIUM CHLORIDE 0.9% 250 ML IV ONE (23:11)
[2024-02-26] VITALS: BP 139/66; PULSE 88; RESP 18; TEMP 98.3
[2024-02-26 04:48] VITALS: BP 128/74; PULSE 98; RESP 18; TEMP 97.6
[2024-02-26 08:00] VITALS: BP 114/72; PULSE 103; RESP 18; TEMP 97.8
[2024-02-26 12:00] VITALS: BP 140/75; PULSE 81; RESP 18; TEMP 98.3
[2024-02-26 16:00] VITALS: BP 136/67; PULSE 98; RESP 18; TEMP 98.1
[2024-02-26 20:08] VITALS: BP 108/61; PULSE 108; RESP 18; TEMP 98.9
[2024-02-27 00:12] VITALS: BP 129/67; PULSE 105; RESP 18; TEMP 99.2
[2024-02-27 04:20] VITALS: BP 115/65; PULSE 108; RESP 18; TEMP 98.2
[2024-02-27 07:15] LABS: BASOPHILS % (AUTO) 0.8 % (0.0-2.0); EOSINOPHILS % (AUTO) 5.6 % (1.0-6.0); HEMATOCRIT 31.7 % (36-46); HEMOGLOBIN 10.3 g/dL (12.0-16.0); LYMPHOCYTES # (AUTO) 2.9 K/uL (1.0-4.8); LYMPHOCYTES % (AUTO) 18.3 % (22.0-44.0); MEAN CORPUSCULAR HEMOGLOBIN 27.4 pg (26.0-34.0); MEAN CORPUSCULAR HGB CONC 32.5 G/dL (31.0-37.0); MEAN CORPUSCULAR VOLUME 84 fL (80-100); MONOCYTES # (AUTO) 1.1 K/uL (0.1-1.0); NEUTROPHILS # (AUTO) 10.7 K/uL (1.8-7.7); NEUTROPHILS % (AUTO) 68.3 % (40.0-70.0); PLATELET COUNT (AUTO) 348 K/uL (150-450); RED BLOOD CELL COUNT(AUTO) 3.76 MIL/uL (4.00-5.20); RED CELL DISTRIBUTION WIDTH 19.9 % (11.5-14.5); WHITE BLOOD COUNT (AUTO) 15.7 K/uL (4.5-11.0)
[2024-02-27 07:36] LABS: ALANINE AMINOTRANSFERASE 14 U/L (12-78); ALBUMIN 1.2 g/dL (3.4-5.0); ALKALINE PHOSPHATASE 135 U/L (46-116); ANION GAP 7 mmol/L (8-16); ASPARTATE AMINOTRANSFERASE 24 U/L (15-37); BILIRUBIN,TOTAL 0.7 mg/dL (0.1-1.0); CALCIUM, TOTAL 9.5 mg/dL (8.8-10.5); CARBON DIOXIDE 27 mmol/L (22-29); CHLORIDE 105 mmol/L (98-107); GLOMERULAR FILTR. RATE CALC > 60 mL/min (>60); GLUCOSE,RANDOM 122 mg/dL (70-110); POTASSIUM 3.6 mmol/L (3.5-5.1); SODIUM SERUM 139 mmol/L (136-145); TOTAL PROTEIN, SERUM 5.7 g/dL (6.4-8.2); UREA NITROGEN, BLOOD 9 mg/dL (7-18)
[2024-02-27 08:02] VITALS: BP 129/68; PULSE 98; RESP 16; TEMP 97.6
[2024-02-27 11:47] VITALS: BP 134/68; PULSE 97; RESP 16; TEMP 97.8
[2024-02-27 15:38] VITALS: BP 131/64; PULSE 103; RESP 18; TEMP 97.6
[2024-02-28 00:59] VITALS: BP 112/60; PULSE 115; RESP 17; TEMP 97.7
[2024-02-28 05:46] VITALS: BP 136/76; PULSE 97; RESP 16; TEMP 98
[2024-02-28 06:04] LABS: BASOPHILS % (AUTO) 0.5 % (0.0-2.0); EOSINOPHILS % (AUTO) 6.4 % (1.0-6.0); HEMATOCRIT 33.9 % (36-46); HEMOGLOBIN 10.9 g/dL (12.0-16.0); LYMPHOCYTES # (AUTO) 2.7 K/uL (1.0-4.8); LYMPHOCYTES % (AUTO) 16.8 % (22.0-44.0); MEAN CORPUSCULAR HEMOGLOBIN 27.1 pg (26.0-34.0); MEAN CORPUSCULAR HGB CONC 32.2 G/dL (31.0-37.0); MEAN CORPUSCULAR VOLUME 84 fL (80-100); MONOCYTES # (AUTO) 1.1 K/uL (0.1-1.0); NEUTROPHILS # (AUTO) 11.2 K/uL (1.8-7.7); NEUTROPHILS % (AUTO) 69.3 % (40.0-70.0); PLATELET COUNT (AUTO) 355 K/uL (150-450); RED BLOOD CELL COUNT(AUTO) 4.03 MIL/uL (4.00-5.20); RED CELL DISTRIBUTION WIDTH 19.7 % (11.5-14.5); WHITE BLOOD COUNT (AUTO) 16.2 K/uL (4.5-11.0)
[2024-02-28 06:18] LABS: ALBUMIN 1.2 g/dL (3.4-5.0); ANION GAP 6 mmol/L (8-16); C-REACTIVE PROTEIN QUANT 10.17 mg/dL (0.00-0.30); CALCIUM, TOTAL 9.6 mg/dL (8.8-10.5); CARBON DIOXIDE 28 mmol/L (22-29); CHLORIDE 105 mmol/L (98-107); CREATININE 0.44 mg/dL (0.60-1.30); GLOMERULAR FILTR. RATE CALC > 60 mL/min (>60); GLUCOSE,RANDOM 111 mg/dL (70-110); POTASSIUM 3.7 mmol/L (3.5-5.1); SODIUM SERUM 139 mmol/L (136-145); UREA NITROGEN, BLOOD 8 mg/dL (7-18)
[2024-02-28 08:04] VITALS: BP 109/67; PULSE 110; RESP 18; TEMP 97.5
[2024-02-28 11:37] VITALS: BP 124/69; PULSE 121; RESP 16; TEMP 97.8
[2024-02-28 16:29] VITALS: BP 101/60; PULSE 112; RESP 17; TEMP 98.1
[2024-02-28 21:52] VITALS: BP 122/71; PULSE 118; RESP 18; TEMP 98.1
[2024-02-29 01:19] VITALS: BP 120/66; PULSE 107; RESP 18; TEMP 98
[2024-02-29 05:17] VITALS: BP 112/56; PULSE 96; RESP 18; TEMP 97.5
[2024-02-29 07:45] LABS: BASOPHILS % (AUTO) 0.7 % (0.0-2.0); EOSINOPHILS % (AUTO) 8.6 % (1.0-6.0); HEMATOCRIT 30.9 % (36-46); LYMPHOCYTES # (AUTO) 2.5 K/uL (1.0-4.8); LYMPHOCYTES % (AUTO) 16.9 % (22.0-44.0); MEAN CORPUSCULAR HEMOGLOBIN 27.1 pg (26.0-34.0); MEAN CORPUSCULAR HGB CONC 32.5 G/dL (31.0-37.0); MEAN CORPUSCULAR VOLUME 83 fL (80-100); MONOCYTES # (AUTO) 1.2 K/uL (0.1-1.0); MONOCYTES % (AUTO) 8.1 % (2.0-9.0); NEUTROPHILS # (AUTO) 9.9 K/uL (1.8-7.7); NEUTROPHILS % (AUTO) 65.7 % (40.0-70.0); PLATELET COUNT (AUTO) 315 K/uL (150-450); RED CELL DISTRIBUTION WIDTH 19.2 % (11.5-14.5)
[2024-02-29 08:03] LABS: ANION GAP 7 mmol/L (8-16); CARBON DIOXIDE 28 mmol/L (22-29); CHLORIDE 106 mmol/L (98-107); CREATININE 0.39 mg/dL (0.60-1.30); GLOMERULAR FILTR. RATE CALC > 60 mL/min (>60); GLUCOSE,RANDOM 109 mg/dL (70-110); POTASSIUM 3.5 mmol/L (3.5-5.1); SODIUM SERUM 141 mmol/L (136-145); UREA NITROGEN, BLOOD 4 mg/dL (7-18)
[2024-02-29 08:18] VITALS: BP 118/44; PULSE 97; RESP 18; TEMP 98.2
[2024-02-29 08:22] LABS: C-REACTIVE PROTEIN QUANT 9.03 mg/dL (0.00-0.30)
[2024-02-29 12:44] VITALS: BP 132/72; PULSE 95; RESP 18; TEMP 98
[2024-02-29 14:50] VITALS: BP 139/65; PULSE 98; RESP 18; TEMP 97.8
[2024-02-29 19:29] VITALS: BP 121/74; PULSE 119; RESP 18; TEMP 98.6
[2024-03-01 04:10] VITALS: BP 123/66; PULSE 122; RESP 18; TEMP 98.2
[2024-03-01 08:56] VITALS: BP 114/71; PULSE 119; RESP 18; TEMP 97.6
[2024-03-01 17:01] VITALS: BP 126/78; PULSE 112; RESP 18; TEMP 98.6
[2024-03-01] MEDS ORDERED: SODIUM CHLORIDE 0.9% 500 ML IV ONE (18:39)
[2024-03-01 19:45] VITALS: BP 142/55; PULSE 108; RESP 18; TEMP 98.4
[2024-03-02 04:00] VITALS: BP 112/64; PULSE 98; RESP 18; TEMP 97.5
[2024-03-02 07:11] LABS: BASOPHILS % (AUTO) 0.9 % (0.0-2.0); EOSINOPHILS % (AUTO) 9.5 % (1.0-6.0); HEMATOCRIT 31.2 % (36-46); HEMOGLOBIN 10.4 g/dL (12.0-16.0); LYMPHOCYTES # (AUTO) 2.3 K/uL (1.0-4.8); LYMPHOCYTES % (AUTO) 18.2 % (22.0-44.0); MEAN CORPUSCULAR HEMOGLOBIN 27.7 pg (26.0-34.0); MEAN CORPUSCULAR HGB CONC 33.2 G/dL (31.0-37.0); MEAN CORPUSCULAR VOLUME 83 fL (80-100); MONOCYTES # (AUTO) 0.9 K/uL (0.1-1.0); MONOCYTES % (AUTO) 7.6 % (2.0-9.0); NEUTROPHILS # (AUTO) 7.9 K/uL (1.8-7.7); NEUTROPHILS % (AUTO) 63.8 % (40.0-70.0); PLATELET COUNT (AUTO) 356 K/uL (150-450); RED BLOOD CELL COUNT(AUTO) 3.74 MIL/uL (4.00-5.20); RED CELL DISTRIBUTION WIDTH 19.1 % (11.5-14.5); WHITE BLOOD COUNT (AUTO) 12.4 K/uL (4.5-11.0)
[2024-03-02 07:26] LABS: ANION GAP 5 mmol/L (8-16); CARBON DIOXIDE 31 mmol/L (22-29); CHLORIDE 108 mmol/L (98-107); CREATININE 0.34 mg/dL (0.60-1.30); GLOMERULAR FILTR. RATE CALC > 60 mL/min (>60); GLUCOSE,RANDOM 106 mg/dL (70-110); POTASSIUM 3.1 mmol/L (3.5-5.1); SODIUM SERUM 144 mmol/L (136-145); UREA NITROGEN, BLOOD 5 mg/dL (7-18)
[2024-03-02 08:03] VITALS: BP 135/68; PULSE 102; RESP 20; TEMP 98.2
[2024-03-02 16:01] VITALS: BP 126/70; PULSE 99; RESP 20; TEMP 98.1
[2024-03-02 20:26] VITALS: BP 144/98; PULSE 98; RESP 20; TEMP 98.4
[2024-03-03 04:47] VITALS: BP 128/74; PULSE 105; RESP 20; TEMP 97.8
[2024-03-03 07:39] LABS: BASOPHILS % (AUTO) 0.9 % (0.0-2.0); EOSINOPHILS % (AUTO) 10.8 % (1.0-6.0); HEMATOCRIT 32.9 % (36-46); HEMOGLOBIN 10.6 g/dL (12.0-16.0); LYMPHOCYTES # (AUTO) 2.6 K/uL (1.0-4.8); LYMPHOCYTES % (AUTO) 22.6 % (22.0-44.0); MEAN CORPUSCULAR HEMOGLOBIN 27.2 pg (26.0-34.0); MEAN CORPUSCULAR HGB CONC 32.1 G/dL (31.0-37.0); MEAN CORPUSCULAR VOLUME 85 fL (80-100); MONOCYTES # (AUTO) 0.8 K/uL (0.1-1.0); MONOCYTES % (AUTO) 7.1 % (2.0-9.0); NEUTROPHILS # (AUTO) 6.9 K/uL (1.8-7.7); NEUTROPHILS % (AUTO) 58.6 % (40.0-70.0); PLATELET COUNT (AUTO) 374 K/uL (150-450); RED BLOOD CELL COUNT(AUTO) 3.89 MIL/uL (4.00-5.20); RED CELL DISTRIBUTION WIDTH 19.3 % (11.5-14.5); WHITE BLOOD COUNT (AUTO) 11.7 K/uL (4.5-11.0)
[2024-03-03 07:57] LABS: ANION GAP 8 mmol/L (8-16); CARBON DIOXIDE 27 mmol/L (22-29); CHLORIDE 108 mmol/L (98-107); GLUCOSE,RANDOM 100 mg/dL (70-110); POTASSIUM 3.4 mmol/L (3.5-5.1); SODIUM SERUM 143 mmol/L (136-145); UREA NITROGEN, BLOOD 4 mg/dL (7-18)
[2024-03-03 08:22] VITALS: BP 121/75; PULSE 69; RESP 20; TEMP 98.5
[2024-03-03 09:02] LABS: C-REACTIVE PROTEIN QUANT 6.11 mg/dL (0.00-0.30); CALCIUM, TOTAL 9.1 mg/dL (8.8-10.5); CREATININE 0.41 mg/dL (0.60-1.30); GLOMERULAR FILTR. RATE CALC > 60 mL/min (>60)
[2024-03-03] MEDS ORDERED: SODIUM CHLORIDE 0.9% 1,000 ML IV ONE (10:54)
[2024-03-03 15:18] VITALS: BP 129/80; PULSE 110; RESP 20; TEMP 98.4
[2024-03-03] MEDS ORDERED: SODIUM CHLORIDE 0.9% IRRIG BTL 1,000 ML IRRIG ONE (18:05)
[2024-03-03 20:35] VITALS: BP 130/65; PULSE 110; RESP 20; TEMP 98.5
[2024-03-04 04:46] VITALS: BP 114/52; PULSE 104; RESP 18; TEMP 97.3
[2024-03-04 06:54] LABS: ANION GAP 6 mmol/L (8-16); CALCIUM, TOTAL 9.1 mg/dL (8.8-10.5); CARBON DIOXIDE 27 mmol/L (22-29); CHLORIDE 108 mmol/L (98-107); CREATININE 0.39 mg/dL (0.60-1.30); GLOMERULAR FILTR. RATE CALC > 60 mL/min (>60); GLUCOSE,RANDOM 84 mg/dL (70-110); POTASSIUM 3.8 mmol/L (3.5-5.1); SODIUM SERUM 141 mmol/L (136-145); UREA NITROGEN, BLOOD 5 mg/dL (7-18)
[2024-03-04 07:01] LABS: EOSINOPHILS % (AUTO) 14.3 % (1.0-6.0); HEMATOCRIT 33.6 % (36-46); HEMOGLOBIN 10.9 g/dL (12.0-16.0); LYMPHOCYTES # (AUTO) 2.5 K/uL (1.0-4.8); LYMPHOCYTES % (AUTO) 21.2 % (22.0-44.0); MEAN CORPUSCULAR HEMOGLOBIN 27.5 pg (26.0-34.0); MEAN CORPUSCULAR HGB CONC 32.4 G/dL (31.0-37.0); MEAN CORPUSCULAR VOLUME 85 fL (80-100); MONOCYTES # (AUTO) 0.9 K/uL (0.1-1.0); NEUTROPHILS # (AUTO) 6.4 K/uL (1.8-7.7); NEUTROPHILS % (AUTO) 55.5 % (40.0-70.0); PLATELET COUNT (AUTO) 333 K/uL (150-450); RED BLOOD CELL COUNT(AUTO) 3.97 MIL/uL (4.00-5.20); RED CELL DISTRIBUTION WIDTH 19.1 % (11.5-14.5); WHITE BLOOD COUNT (AUTO) 11.6 K/uL (4.5-11.0)
[2024-03-04 07:57] VITALS: BP 116/74; PULSE 109; RESP 18; TEMP 98.3
[2024-03-04 15:45] VITALS: BP 140/81; PULSE 96; RESP 18; TEMP 98.1
[2024-03-04 19:27] VITALS: BP 115/58; PULSE 106; RESP 18; TEMP 97.9
[2024-03-05 04:12] VITALS: BP 93/52; PULSE 99; RESP 18; TEMP 98
[2024-03-05 09:14] VITALS: BP 119/67; PULSE 87; RESP 18; TEMP 98.2
[2024-03-05 16:00] VITALS: BP 129/59; PULSE 94; RESP 18; TEMP 98.5
[2024-03-05 19:37] VITALS: BP 123/69; PULSE 91; RESP 18; TEMP 98.4
[2024-03-06 04:10] VITALS: BP 113/66; PULSE 95; RESP 18; TEMP 97.9
[2024-03-06] MEDS ORDERED: SODIUM CHLORIDE 0.9% 500 ML IV ONE (09:05)
[2024-03-06 09:19] VITALS: BP 116/69; PULSE 136; RESP 18; TEMP 98.6
[2024-03-06 11:56] VITALS: PULSE 92
[2024-03-06 16:00] VITALS: BP 143/78; PULSE 96; RESP 18; TEMP 98.7
[2024-03-06 19:24] VITALS: BP 148/76; PULSE 123; RESP 18; TEMP 97.7
[2024-03-06 20:34] VITALS: PULSE 107
[2024-03-07 04:36] VITALS: BP 117/64; PULSE 96; RESP 18; TEMP 97.8
[2024-03-07 08:08] VITALS: BP 135/68; PULSE 99; RESP 19; TEMP 98.1
[2024-03-07] MEDS: SENNOSIDES 8.6 MG TABLET PO ONE (16:45)
[2024-03-07] MEDS ORDERED: AMPI3VIA20 IV (17:42)
[2024-03-07] MEDS ORDERED: COLL30OI TP (17:43)
[2024-03-07] MEDS ORDERED: CEFI1VIA IV (17:45)
[2024-03-07] MEDS ORDERED: DOCU-385 PO (17:46)
[2024-03-07] MEDS ORDERED: FLUC200T85 PO (17:47)
[2024-03-07] MEDS ORDERED: MERO1VIA27 IV (17:48)
== END 2024-03-07 20:10 | DRG 793 ==
LOC: EMS 11:05 → AHU 02-08 03:39 → 6S 02-08 09:22 → 5S 02-08 11:50 → 6N 02-29 14:36
PROVIDERS: ADMIT Internal Medicine; ATTEND Internal Medicine
PROC: 0QB10ZZ Excision of Sacrum, Open Approach (ICD-10-PCS; 2024-02-13)
PROC: 30233N1 Transfusion of Nonautologous Red Blood Cells into Peripheral Vein, Percutaneous Approach (ICD-10-PCS; principal; 2024-02-13 07:45)
DX: T81.30XA Disruption of wound, unspecified, initial encounter (principal); J96.91 Respiratory failure, unspecified with hypoxia; A41.9 Sepsis, unspecified organism; G93.40 Encephalopathy, unspecified; E43 Unspecified severe protein-calorie malnutrition; L89.154 Pressure ulcer of sacral region, stage 4; G82.20 Paraplegia, unspecified; N39.0 Urinary tract infection, site not specified; Z93.3 Colostomy status; L03.818 Cellulitis of other sites; I10 Essential (primary) hypertension; M46.28 Osteomyelitis of vertebra, sacral and sacrococcygeal region; N31.9 Neuromuscular dysfunction of bladder, unspecified; E87.6 Hypokalemia; Y83.8 Other surgical procedures as the cause of abnormal reaction of the patient, or of later complication, without mention of misadventure at the time of the procedure; R62.7 Adult failure to thrive; Z20.822 Contact with and (suspected) exposure to COVID-19; Z16.13 Resistance to carbapenem; D63.8 Anemia in other chronic diseases classified elsewhere; Z91.040 Latex allergy status; Z79.899 Other long term (current) drug therapy; Z74.01 Bed confinement status; Y92.89 Other specified places as the place of occurrence of the external cause
CPT/HCPCS: 71045; 71260; 72193; 74018; 74160; 74177; 80048; 80053; 80202; 81001; 81002; 82040; 82962; 83540; 83550; 83605; 83690; 83735; 84132; 84145; 85025; 85045; 85610; 86140; 86850; 86900; 86901; 86923; 87040; 87070; 87081; 87086; 87101; 87186; 87205; 87481; 88304; 88311; 93005; 99285; C9290; G0378; J0295; J0637; J0692; J0696; J0743; J1100; J1644; J2185; J2250; J2270; J2405; J2704; J3243; J3370; J3480; J3490; J7030; J7040; J7050; J7060; P9016; Q9967; Q9968; 36415-L1; 36415-TC

== ENCOUNTER 2024-04-25 15:18 | Inpatient (IN) | payer MEDICAID, OTHER ==
[~2024-04-25] VITALS: Ht 170.2 cm; Wt 51.3 kg
[~2024-04-25 15:18] MED LIST: ACET-2247 PO; AMPI3VIA20 IV; CEFI1VIA IV; COLL30OI TP; DOCU-385 PO; FLUC200T85 PO; MERO1VIA27 IV; METO25 PO
[2024-04-25] MEDS ORDERED: 0.9% SODIUM CHLORIDE 10 ML SYRINGE IVP PRN (16:45)
[2024-04-25 17:21] LABS: APPEARANCE,URINE TURBID (CLEAR); BILIRUBIN,URINE NEGATIVE (NEGATIVE); COLOR,URINE YELLOW (YELLOW); GLUCOSE, URINE (UA) NEGATIVE (NEGATIVE); LEUKOCYTE ESTERASE ,URINE LARGE (NEGATIVE); NITRATE,URINE POSITIVE (NEGATIVE); OCCULT BLOOD,URINE MODERATE (NEGATIVE); PH,URINE 6.5 (5.0-8.0); PROTEIN,URINE 100-200,SEE CONFIRM mg/dL (NEGATIVE); UROBILINOGEN,URINE <=1.0 mg/dL (<=1.0)
[2024-04-25 17:22] LABS: BASOPHILS % (AUTO) 0.4 % (0.0-2.0); EOSINOPHILS % (AUTO) 0.7 % (1.0-6.0); HEMATOCRIT 34.2 % (36-46); HEMOGLOBIN 10.9 g/dL (12.0-16.0); LYMPHOCYTES # (AUTO) 1.7 K/uL (1.0-4.8); LYMPHOCYTES % (AUTO) 9.2 % (22.0-44.0); MEAN CORPUSCULAR HEMOGLOBIN 27.5 pg (26.0-34.0); MEAN CORPUSCULAR HGB CONC 31.8 G/dL (31.0-37.0); MEAN CORPUSCULAR VOLUME 86 fL (80-100); MONOCYTES % (AUTO) 5.8 % (2.0-9.0); NEUTROPHILS # (AUTO) 15.2 K/uL (1.8-7.7); NEUTROPHILS % (AUTO) 83.9 % (40.0-70.0); PLATELET COUNT (AUTO) 597 K/uL (150-450); RED BLOOD CELL COUNT(AUTO) 3.96 MIL/uL (4.00-5.20); RED CELL DISTRIBUTION WIDTH 16.2 % (11.5-14.5); WHITE BLOOD COUNT (AUTO) 18.1 K/uL (4.5-11.0)
[2024-04-25] MEDS: SODIUM CHLORIDE 0.9% 1,950 ML IV ONE (17:22)
[2024-04-25] MEDS: CefTRIAXone 1 GM/DEXTROSE 50 ML IV ONE (17:22)
[2024-04-25 17:35] LABS: INR 1.1 (0.9-1.1); PROTHROMBIN TIME 11.7 SEC (9.4-11.6)
[2024-04-25 17:42] LABS: TROPONIN I-HIGH SENSITIVITY Less Than 4 ng/L (<51)
[2024-04-25 17:44] LABS: LACTIC ACID 2.5 mmol/L (0.4-2.0)
[2024-04-25 17:48] LABS: ANION GAP 11 mmol/L (8-16); CALCIUM, TOTAL 10.9 mg/dL (8.8-10.5); CARBON DIOXIDE 27 mmol/L (22-29); CHLORIDE 94 mmol/L (98-107); CREATININE 0.74 mg/dL (0.60-1.30); GLOMERULAR FILTR. RATE CALC > 60 mL/min (>60); GLUCOSE,RANDOM 121 mg/dL (70-110); POTASSIUM 4.3 mmol/L (3.5-5.1); SODIUM SERUM 132 mmol/L (136-145); UREA NITROGEN, BLOOD 16 mg/dL (7-18)
[2024-04-25 17:52] LABS: SULFOSALICYLIC ACID,URINE 4+ (Negative)
[2024-04-25 17:52] LABS: ALANINE AMINOTRANSFERASE 31 U/L (12-78); ALBUMIN 1.4 g/dL (3.4-5.0); ALKALINE PHOSPHATASE 232 U/L (46-116); ASPARTATE AMINOTRANSFERASE 30 U/L (15-37); BILIRUBIN,TOTAL 0.5 mg/dL (0.1-1.0); TOTAL PROTEIN, SERUM 8.2 g/dL (6.4-8.2)
[2024-04-25 17:53] LABS: BACTERIA,URINE Many /HPF (None Seen); WBC,URINE >100 /HPF (0-5); YEAST,URINE Few /HPF (None Seen)
[2024-04-25 18:05] LABS: B-TYPE NATRIURETIC PEPTIDE 13 pg/mL (0-100)
[2024-04-25] MEDS: ACETAMINOPHEN 1000 MG/ISO-OSM 100 ML IV ONE (18:13)
[2024-04-25] MEDS ORDERED: ACETAMINOPHEN 325 MG TABLET PO PRN (20:30)
[2024-04-25] MEDS ORDERED: ONDANSETRON HCL 4 MG/2 ML VIAL IVP PRN (20:30)
[2024-04-25] MEDS ORDERED: ZOLPIDEM TARTRATE 5 MG TABLET PO PRN (20:30)
[2024-04-25] MEDS ORDERED: BISACODYL 10 MG RECTAL RECTAL SUPPOSITORY PR PRN (20:30)
[2024-04-25] MEDS ORDERED: HYDROCODONE/ACETAMINOPHEN 5-325 MG TABLET PO PRN (20:30)
[2024-04-25] MEDS ORDERED: MAGNESIUM HYDROXIDE SUSPENSION 30 ML UDCUP PO PRN (20:30)
[2024-04-25] MEDS: *CLINICAL-LEVOFLOXACIN IVPB DOSING CLINICAL ONE (20:51)
[2024-04-25] MEDS: METOPROLOL TARTRATE 25 MG TABLET PO SCH (21:00)
[2024-04-25] MEDS: DOCUSATE SODIUM 100 MG CAPSULE PO SCH (21:00)
[2024-04-25 21:11] LABS: INFLUENZA A-RTPCR,COMBO NEGATIVE (NEGATIVE); INFLUENZA B-RTPCR,COMBO NEGATIVE (NEGATIVE); RESPIRATORY SYNCYTIAL VRS-PCR NEGATIVE (NEGATIVE); SARS COVID19 RTPCR, COMBO NEGATIVE (NEGATIVE)
[2024-04-25 23:29] VITALS: BP 110/72; PULSE 109; RESP 19; TEMP 98
[2024-04-26] MEDS: LEVOFLOXACIN 750 MG/D5% WATER 150 ML IV SCH (00:34)
[2024-04-26] MEDS: SODIUM CHLORIDE 0.9% 1,000 ML IV ONE (00:35)
[2024-04-26] MEDS: HEPARIN SODIUM,PORCINE 5,000 UNITS/ML VIAL SQ SCH (00:35)
[2024-04-26 05:18] VITALS: BP 121/65; PULSE 108; RESP 18; TEMP 97.9
[2024-04-26 07:58] VITALS: BP 105/92; PULSE 112; RESP 18; TEMP 98.3
[2024-04-26] MEDS: PANTOPRAZOLE SODIUM 40 MG DR TABLET PO SCH (08:43)
[2024-04-26 10:56] LABS: BASOPHILS % (AUTO) 0.4 % (0.0-2.0); EOSINOPHILS % (AUTO) 1.3 % (1.0-6.0); HEMATOCRIT 28.4 % (36-46); LYMPHOCYTES # (AUTO) 0.8 K/uL (1.0-4.8); LYMPHOCYTES % (AUTO) 5.5 % (22.0-44.0); MEAN CORPUSCULAR HEMOGLOBIN 27.4 pg (26.0-34.0); MEAN CORPUSCULAR HGB CONC 31.6 G/dL (31.0-37.0); MEAN CORPUSCULAR VOLUME 87 fL (80-100); MONOCYTES % (AUTO) 6.4 % (2.0-9.0); NEUTROPHILS # (AUTO) 13.2 K/uL (1.8-7.7); PLATELET COUNT (AUTO) 487 K/uL (150-450); RED BLOOD CELL COUNT(AUTO) 3.28 MIL/uL (4.00-5.20); RED CELL DISTRIBUTION WIDTH 16.2 % (11.5-14.5); WHITE BLOOD COUNT (AUTO) 15.2 K/uL (4.5-11.0)
[2024-04-26 11:05] LABS: ANION GAP 11 mmol/L (8-16); CALCIUM, TOTAL 9.5 mg/dL (8.8-10.5); CARBON DIOXIDE 25 mmol/L (22-29); CHLORIDE 103 mmol/L (98-107); CREATININE 0.55 mg/dL (0.60-1.30); GLOMERULAR FILTR. RATE CALC > 60 mL/min (>60); GLUCOSE,RANDOM 96 mg/dL (70-110); POTASSIUM 3.5 mmol/L (3.5-5.1); SODIUM SERUM 139 mmol/L (136-145); UREA NITROGEN, BLOOD 12 mg/dL (7-18)
[2024-04-26 11:12] LABS: NEUTROPHILS % (AUTO) 86.4 % (40.0-70.0)
[2024-04-26 11:31] VITALS: BP 119/91; PULSE 114; RESP 16; TEMP 98
[2024-04-26] MEDS: CIPROFLOXACIN 400 MG/D5% WATER 200 ML IV SCH (11:39)
[2024-04-26] MEDS ORDERED: SODIUM CHLORIDE 0.9% 250 ML IV ONE (15:50)
[2024-04-26] MEDS: VANCOMYCIN 1.25 GM/WATER(PEG) 250 ML IV ONE (16:03)
[2024-04-26 16:14] VITALS: BP 113/65; PULSE 123; RESP 20; TEMP 98.2
[2024-04-26] MEDS: FLUCONAZOLE 200 MG TABLET PO SCH (16:15)
[2024-04-26] MEDS: SODIUM CHLORIDE 0.45% 1,000 ML IV ONE (16:35)
[2024-04-26] MEDS ORDERED: CefTRIAXone 1 GM/DEXTROSE 50 ML IV SCH (17:00)
[2024-04-26 19:44] VITALS: BP 112/70; PULSE 121; RESP 18; TEMP 98.2
[2024-04-26] MEDS: VANCOMYCIN 750 MG/WATER(PEG) 150 ML IV SCH (23:41)
[2024-04-27 04:46] VITALS: BP 101/66; PULSE 117; RESP 18; TEMP 97.7
[2024-04-27 07:30] LABS: ANION GAP 11 mmol/L (8-16); CALCIUM, TOTAL 9.8 mg/dL (8.8-10.5); CARBON DIOXIDE 23 mmol/L (22-29); CHLORIDE 102 mmol/L (98-107); CREATININE 0.49 mg/dL (0.60-1.30); GLOMERULAR FILTR. RATE CALC > 60 mL/min (>60); GLUCOSE,RANDOM 94 mg/dL (70-110); HEMATOCRIT 23.4 % (36-46); HEMOGLOBIN 7.3 g/dL (12.0-16.0); MEAN CORPUSCULAR HEMOGLOBIN 27.6 pg (26.0-34.0); MEAN CORPUSCULAR HGB CONC 31.3 G/dL (31.0-37.0); MEAN CORPUSCULAR VOLUME 88 fL (80-100); PLATELET COUNT (AUTO) 543 K/uL (150-450); POTASSIUM 3.1 mmol/L (3.5-5.1); RED BLOOD CELL COUNT(AUTO) 2.66 MIL/uL (4.00-5.20); RED CELL DISTRIBUTION WIDTH 16.3 % (11.5-14.5); SODIUM SERUM 136 mmol/L (136-145); UREA NITROGEN, BLOOD 10 mg/dL (7-18); WHITE BLOOD COUNT (AUTO) 18.6 K/uL (4.5-11.0)
[2024-04-27 08:06] VITALS: BP 100/61; PULSE 98; RESP 19; TEMP 97.5
[2024-04-27 08:14] LABS: BAND NEUTROPHILS % (MANUAL) 5 % (0-5); LYMPHOCYTES % (MANUAL) 29 % (22-44); MONOCYTES % (MANUAL) 2 % (2-9); RBC MORPHOLOGY COMMENT NORMAL RBC MORPH; SEGMENTED NEUTROPHILS % 64 % (40-70); TOTAL CELLS COUNTED 100
[2024-04-27 08:16] LABS: C-REACTIVE PROTEIN QUANT 33.59 mg/dL (0.00-0.30)
[2024-04-27] MEDS: *CLINICAL-MEROPENEM DOSING CLINICAL ONE (09:52)
[2024-04-27] MEDS: POTASSIUM CHL 10 MEQ/WATER 50 ML IV PRN (09:52)
[2024-04-27] MEDS: MEROPENEM 1 GM in SODIUM CHLORIDE 0.9% 100 ML IV SCH (11:10)
[2024-04-27 15:43] VITALS: BP 101/60; PULSE 83; RESP 18; TEMP 97.7
[2024-04-27] MEDS ORDERED: SODIUM CL IRRIG SOLN BOTTLE 250 ML IRRIG ONE (17:18)
[2024-04-27] MEDS: MORPHINE SULFATE 2 MG/ML SYRINGE IVP PRN (20:12)
[2024-04-27 20:13] VITALS: BP 140/62; PULSE 108; RESP 18; TEMP 97.7
[2024-04-28 05:38] VITALS: BP 104/60; PULSE 98; RESP 17; TEMP 97.6
[2024-04-28 08:12] VITALS: BP 114/57; PULSE 52; RESP 17; TEMP 97.5
[2024-04-28 08:29] LABS: ANION GAP 9 mmol/L (8-16); CALCIUM, TOTAL 10.1 mg/dL (8.8-10.5); CARBON DIOXIDE 23 mmol/L (22-29); CHLORIDE 102 mmol/L (98-107); CREATININE 0.43 mg/dL (0.60-1.30); GLOMERULAR FILTR. RATE CALC > 60 mL/min (>60); GLUCOSE,RANDOM 100 mg/dL (70-110); POTASSIUM 4.1 mmol/L (3.5-5.1); SODIUM SERUM 134 mmol/L (136-145); UREA NITROGEN, BLOOD 8 mg/dL (7-18); VANCOMYCIN,RANDOM 31.4 mcg/mL (25.0-50.0)
[2024-04-28] MEDS ORDERED: SODIUM CHLORIDE 0.9% 500 ML IV ONE (08:40)
[2024-04-28 09:18] LABS: C-REACTIVE PROTEIN QUANT 27.39 mg/dL (0.00-0.30)
[2024-04-28 17:29] VITALS: BP 99/68; PULSE 112; RESP 17; TEMP 97.7
[2024-04-28] MEDS: CeFAZolin 1 GM/DEXTROSE 50 ML IV SCH (18:06)
[2024-04-28 18:20] LABS: BASOPHILS % (AUTO) 0.6 % (0.0-2.0); EOSINOPHILS % (AUTO) 2.2 % (1.0-6.0); HEMATOCRIT 30.9 % (36-46); HEMOGLOBIN 9.7 g/dL (12.0-16.0); LYMPHOCYTES # (AUTO) 1.7 K/uL (1.0-4.8); LYMPHOCYTES % (AUTO) 16.3 % (22.0-44.0); MEAN CORPUSCULAR HEMOGLOBIN 27.5 pg (26.0-34.0); MEAN CORPUSCULAR HGB CONC 31.4 G/dL (31.0-37.0); MEAN CORPUSCULAR VOLUME 88 fL (80-100); MONOCYTES # (AUTO) 0.5 K/uL (0.1-1.0); MONOCYTES % (AUTO) 5.2 % (2.0-9.0); NEUTROPHILS # (AUTO) 7.9 K/uL (1.8-7.7); NEUTROPHILS % (AUTO) 75.7 % (40.0-70.0); PLATELET COUNT (AUTO) 553 K/uL (150-450); RED BLOOD CELL COUNT(AUTO) 3.52 MIL/uL (4.00-5.20); RED CELL DISTRIBUTION WIDTH 16.7 % (11.5-14.5); WHITE BLOOD COUNT (AUTO) 10.5 K/uL (4.5-11.0)
[2024-04-28 19:50] VITALS: BP 118/88; PULSE 112; RESP 18; TEMP 98.2
[2024-04-28] MEDS: VANCOMYCIN 750 MG/WATER(PEG) 150 ML IV SCH (20:05)
[2024-04-29 00:15] VITALS: BP 118/63; PULSE 113; RESP 18; TEMP 98.2
[2024-04-29 07:16] LABS: ANION GAP 9 mmol/L (8-16); CALCIUM, TOTAL 9.7 mg/dL (8.8-10.5); CARBON DIOXIDE 23 mmol/L (22-29); CHLORIDE 104 mmol/L (98-107); CREATININE 0.33 mg/dL (0.60-1.30); GLOMERULAR FILTR. RATE CALC > 60 mL/min (>60); GLUCOSE,RANDOM 95 mg/dL (70-110); POTASSIUM 3.7 mmol/L (3.5-5.1); SODIUM SERUM 136 mmol/L (136-145); UREA NITROGEN, BLOOD 7 mg/dL (7-18)
[2024-04-29 07:43] VITALS: BP 102/47; PULSE 121; RESP 18; TEMP 97.5
[2024-04-29 15:54] VITALS: BP 105/65; PULSE 119; RESP 18; TEMP 97.5
[2024-04-29 20:20] VITALS: BP 125/67; PULSE 118; RESP 17; TEMP 97.6
[2024-04-29] MEDS ORDERED: SODIUM CHLORIDE 0.9% 500 ML IV ONE (23:50)
[2024-04-30 05:30] VITALS: BP 103/79; PULSE 114; RESP 20; TEMP 98.3
[2024-04-30 08:12] VITALS: BP 104/76; PULSE 111; RESP 20; TEMP 98
[2024-04-30 16:00] VITALS: BP 134/64; PULSE 114; RESP 20; TEMP 97.7
[2024-04-30 20:21] VITALS: BP 108/58; PULSE 102; RESP 20; TEMP 98.4
[2024-05-01] MEDS ORDERED: SODIUM CHLORIDE 0.9% 500 ML IV ONE (04:42)
[2024-05-01 05:00] VITALS: BP 95/62; PULSE 109; RESP 20; TEMP 98.1
[2024-05-01 07:45] LABS: ANION GAP 8 mmol/L (8-16); CALCIUM, TOTAL 9.2 mg/dL (8.8-10.5); CARBON DIOXIDE 26 mmol/L (22-29); CHLORIDE 105 mmol/L (98-107); CREATININE 0.37 mg/dL (0.60-1.30); GLOMERULAR FILTR. RATE CALC > 60 mL/min (>60); GLUCOSE,RANDOM 124 mg/dL (70-110); POTASSIUM 3.3 mmol/L (3.5-5.1); SODIUM SERUM 139 mmol/L (136-145); UREA NITROGEN, BLOOD 6 mg/dL (7-18); VANCOMYCIN,RANDOM 24.6 mcg/mL (25.0-50.0)
[2024-05-01 12:20] LABS: ALANINE AMINOTRANSFERASE 33 U/L (12-78); ALBUMIN 1.2 g/dL (3.4-5.0); ALKALINE PHOSPHATASE 194 U/L (46-116); ASPARTATE AMINOTRANSFERASE 40 U/L (15-37); BILIRUBIN,TOTAL 0.2 mg/dL (0.1-1.0); C-REACTIVE PROTEIN QUANT 19.49 mg/dL (0.00-0.30); TOTAL PROTEIN, SERUM 6.2 g/dL (6.4-8.2)
[2024-05-01] MEDS: POTASSIUM CHLORIDE 20 MEQ ER TABLET PO PRN (17:14)
[2024-05-01 17:50] VITALS: BP 95/60; PULSE 103; RESP 20; TEMP 98.7
[2024-05-01] MEDS: VANCOMYCIN 500 MG/WATER(PEG) 100 ML IV SCH (20:48)
[2024-05-01 21:00] VITALS: BP 111/62; PULSE 70; RESP 20; TEMP 97.3
[2024-05-02 06:13] VITALS: BP 96/64; PULSE 95; RESP 20; TEMP 97.5
[2024-05-02 08:29] VITALS: BP 144/64; PULSE 103; RESP 20; TEMP 97.4
[2024-05-02 10:47] LABS: BASOPHILS % (AUTO) 0.7 % (0.0-2.0); EOSINOPHILS % (AUTO) 1.9 % (1.0-6.0); HEMATOCRIT 28.8 % (36-46); LYMPHOCYTES # (AUTO) 2.6 K/uL (1.0-4.8); LYMPHOCYTES % (AUTO) 19.1 % (22.0-44.0); MEAN CORPUSCULAR HEMOGLOBIN 27.4 pg (26.0-34.0); MEAN CORPUSCULAR HGB CONC 31.3 G/dL (31.0-37.0); MEAN CORPUSCULAR VOLUME 88 fL (80-100); MONOCYTES % (AUTO) 7.3 % (2.0-9.0); NEUTROPHILS # (AUTO) 9.9 K/uL (1.8-7.7); PLATELET COUNT (AUTO) 309 K/uL (150-450); RED BLOOD CELL COUNT(AUTO) 3.28 MIL/uL (4.00-5.20); RED CELL DISTRIBUTION WIDTH 16.4 % (11.5-14.5); WHITE BLOOD COUNT (AUTO) 13.9 K/uL (4.5-11.0)
[2024-05-02 11:32] LABS: ANION GAP 10 mmol/L (8-16); CARBON DIOXIDE 23 mmol/L (22-29); CHLORIDE 105 mmol/L (98-107); CREATININE 0.32 mg/dL (0.60-1.30); GLOMERULAR FILTR. RATE CALC > 60 mL/min (>60); GLUCOSE,RANDOM 123 mg/dL (70-110); SODIUM SERUM 138 mmol/L (136-145); UREA NITROGEN, BLOOD 5 mg/dL (7-18)
[2024-05-02] MEDS ORDERED: ATOR40TA28 PO (13:09)
[2024-05-02 15:51] VITALS: BP 122/57; PULSE 117; RESP 18; TEMP 97.8
[2024-05-02 16:37] VITALS: BP 129/53; PULSE 98; RESP 19; TEMP 98.1
== END 2024-05-02 20:03 | DRG 720 ==
LOC: EMS 15:18 → EDH 20:35 → 5N 23:12 → 6S 04-26 15:25
PROVIDERS: ADMIT Internal Medicine; ATTEND Internal Medicine
PROC: 05HA33Z Insertion of Infusion Device into Left Brachial Vein, Percutaneous Approach (ICD-10-PCS; principal; 2024-04-29)
PROC: 02HV33Z Insertion of Infusion Device into Superior Vena Cava, Percutaneous Approach (ICD-10-PCS; 2024-05-01)
PROC: 05H933Z Insertion of Infusion Device into Right Brachial Vein, Percutaneous Approach (ICD-10-PCS; 2024-05-01)
DX: A41.02 Sepsis due to Methicillin resistant Staphylococcus aureus (principal); J96.01 Acute respiratory failure with hypoxia; G93.41 Metabolic encephalopathy; E43 Unspecified severe protein-calorie malnutrition; L89.159 Pressure ulcer of sacral region, unspecified stage; G82.20 Paraplegia, unspecified; D63.8 Anemia in other chronic diseases classified elsewhere; Z20.822 Contact with and (suspected) exposure to COVID-19; R65.20 Severe sepsis without septic shock; M46.28 Osteomyelitis of vertebra, sacral and sacrococcygeal region; N39.0 Urinary tract infection, site not specified; N31.9 Neuromuscular dysfunction of bladder, unspecified; Z66 Do not resuscitate; Z93.3 Colostomy status; Z91.040 Latex allergy status; Z68.1 Body mass index [BMI] 19.9 or less, adult
CPT/HCPCS: 0241U; 36245; 36569; 71045; 76937; 80048; 80053; 80202; 81001; 81002; 83605; 83880; 84132; 84145; 84484; 85025; 85610; 86140; 87040; 87077; 87081; 87086; 87186; 87205; 87481; 92526; 92610; 93005; 93306; 99291; J0131; J0690; J0696; J0744; J1644; J1956; J2185; J2270; J3480; J7030; J7040; J7050; 36415-L1; 36415-TC